=== PATIENT | male | born 1955 | race Caucasian/White ===

== ENCOUNTER → 2018-10-26 | Outpatient (CLI) | payer BC ==
[~2018-10-26] MED LIST: ALBU90OI INH; ALPR.25; ASPI81CH PO; ATEN25; ATEN50 PO; CIPR500 PO; CYAN100 PO; CYCL10 PO; DIAZ10 PO; FLONASE ALLERG9.9 ML NS; FLUO.05TO TOP; HYDACE10B PO; HYDR-86 PO; IBUP800; IBUP800 PO; LORA1 PO; METO50ER PO; PRED20; PSYL5.85P PO; QUET25 PO; RALT400 PO; SERT25 PO; TRAZ100 PO; TRUVADA 167 MG1 EACH PO
== END | disposition home or self-care (01) ==
LOC: PLD 10:42 → LAB SHORT 10:42
DX: L82.1 Other seborrheic keratosis (principal)
CPT/HCPCS: 88305

== ENCOUNTER 2019-06-04 13:05 | Inpatient (IN) | payer BC ==
[~2019-06-04] VITALS: Ht 182.9 cm; Wt 68.4 kg
[2019-06-04 13:34] LABS: BASOPHILS ABSOLUTE AUTO 0.04 K/mm3 (0.00-0.23); BASOPHILS PERCENT AUTO 1 % (0-2); EOSINOPHILS ABSOLUTE AUTO 0.19 K/mm3 (0.00-0.68); EOSINOPHILS PERCENT AUTO 2 % (0-6); Hematocrit 39.8 % (37.0-53.0); Hemoglobin 13.2 g/dL (13.5-17.5); IMMATURE GRAN ABSOLUTE AUTO 0.03 K/mm3 (0.00-0.10); IMMATURE GRAN PERCENT AUTO 0 % (0-1); LYMPHOCYTES ABSOLUTE AUTO 1.79 K/mm3 (0.84-5.20); LYMPHOCYTES PERCENT AUTO 21 % (21-46); MONOCYTES ABSOLUTE AUTO 0.67 K/mm3 (0.16-1.47); MONOCYTES PERCENT AUTO 8 % (4-13); Mean Corpuscular HGB 32.9 pg (26.0-34.0); Mean Corpuscular HGB Conc 33.2 g/dL (31.5-36.5); Mean Corpuscular Volume 99 fL (80-100); Mean Platelet Volume 9.3 fL (9.1-12.4); NEUTROPHILS PERCENT AUTO 68 % (41-73); Platelet Count 250 K/mm3 (150-400); RDW Coefficient Variation 12.6 % (11.7-14.2); RDW Standard Deviation 46.4 fL (35.1-46.3); Red Blood Cell Count 4.01 M/mm3 (4.30-5.90); White Blood Cell Count 8.52 K/mm3 (4.00-11.30)
[2019-06-04 13:54] LABS: Alanine Aminotransfer (ALT/SGP 35 U/L (12-78); Albumin, Blood 3.8 g/dL (3.4-5.0); Albumin/Globulin Ratio 1.2 (0.8-1.8); Alk Phos 71 U/L (50-136); Anion Gap 4 mmol/L (6-16); Aspartate Aminotrans (AST/SGOT 28 U/L (12-37); Bilirubin, Total 0.2 mg/dL (0.1-1.0); Blood Urea Nitrogen 17 mg/dL (8-24); Bun/Creatinine Ratio 16.5 (12.0-20.0); CO2, Blood 29 mmol/L (21-32); Calcium, Blood 8.9 mg/dL (8.5-10.1); Chloride, Blood 112 mmol/L (98-108); Creatinine, Blood 1.03 mg/dL (0.60-1.20); Globulin, Blood 3.2 g/dL (2.2-4.0); Glomerular Filtration Rate >60 (60-); Glucose, Blood 106 mg/dL (70-99); Potassium, Blood 4.2 mmol/L (3.5-5.5); Sodium, Blood 145 mmol/L (136-145); Troponin I 0.056 ng/mL (0.000-0.040)
[2019-06-04 15:43] LABS: International Normalized Ratio 0.9; Prothrombin Time Results 9.6 Sec (9.7-11.5)
--- NOTE | 2019-06-04 17:59 | NUR ---
ARIVAL TO THE UNIT: PT ARIVES TO ICU 2 VIA ICU BED. PT APPEARS TO BE A/O X 4. PULSES ARE NOTED AND STRONG IN R WRIST AND ALL OTHER EXTREMITIES. REPORT OF PT WITH TR BAND /C 12ML OF AIR PLACED AT 1700. NO ACUTE DISTRESS NOTED AT TIME OF ARIVAL. PT REPORT OF [place]. WILL CONTINUE TO MONITOR AND ASSESS FURTHER.
[2019-06-04] MEDS ORDERED: BIKTARVY 50-201 EACH PO (19:07)
--- NOTE | 2019-06-04 19:50 | NUR ---
SHIFT SUMMARY: PT C/O HEAD ACHE. REMOVED NITRO PASTE FROM CHEST AND EDUCATED PT ON REPORTING IF CHEST PAIN RETURNS, WILL CONTINUE TO MONITOR AND ASSESS. TR BAND IN PLACE NO OOZING NOTED, PT EDUCATED ON NOT USING R ARM. CALL LIGHT IN REACH. ADMISSION HISTORY COMPLETE. REPORT GIVEN TO NEHEMIAH RN.
--- NOTE | 2019-06-04 20:26 | NUR ---
CARE ASSUMED CARE AND REPORT ASSUMED FROM JAY NG. PT SITTING UP IN BED TALKING ON PHONE. DENIES CHEST PAIN AT THIS TIME BUT DOES COMPLAIN OF HEADACHE. MD MACIAS BEDSIDE EVALUATING PT AT THIS TIME AND IS AWARE OF HEADACHE. VSS. BBB, HR 50-60S. BP STABLE. LUNG SOUNDS CLEAR; SPO2 97% ON RA. AGGRASTAT INFUSING AT 12 ML/HR PER ORDERS. CURRENTLY IN PROCESS OF DEFLATING AND REMOVING TR BAND. PT EDUCATED ON CARE OF WRIST AND LIMITED USE. ARM REMAINS IN ARMBOARD. WILL CONTINUE TO MONITOR.
--- NOTE | 2019-06-04 23:42 | NUR ---
REASSESSMENT TR BAND REMOVED AT 2130, SITE CLEANED, CLOTH DOT DRESSING APPLIED, AND ARMBOARD REAPPLIED. SITE REMAINS CLEAN AND DRY. SURROUNDING ECCHYMOSIS DEVELOPING WITH MILD EDEMA. PT AWARE OF CONTINUED NEED TO KEEP R WRIST STRAIGHT WITHOUT BENDING. STATES HEADACHE IMPROVED AFTER MORPHINE. VSS. DENIES CHEST PAIN. AGGRASTAT REMAINS INFUSING. UP TO SIDE OF BED WITH NO ASSIST. WILL CONTINUE TO MONITOR.
--- NOTE | 2019-06-05 03:34 | NUR ---
REASSESSMENT PT SLEEPING BUT AWAKENS EASILY. HAD A 4 BEAT RUN OF PACS AND THEN COMPLAINED OF NAUSEA. ZOFRAN 4 MG IVP GIVEN; WILL RECHECK FOR SYMPTOM RELIEF. DENIES CHEST PAIN. AGGRASTAT REMAINS INFUSING PER ORDER. BP STABLE. SURGICAL SITE ON R WRIST REMAINS CLEAN AND DRY WITH ARMBOARD SECURED. WILL CONTINUE TO MONITOR.
[2019-06-05 05:39] LABS: BASOPHILS ABSOLUTE AUTO 0.03 K/mm3 (0.00-0.23); BASOPHILS PERCENT AUTO 1 % (0-2); EOSINOPHILS ABSOLUTE AUTO 0.18 K/mm3 (0.00-0.68); EOSINOPHILS PERCENT AUTO 3 % (0-6); Hematocrit 35.2 % (37.0-53.0); Hemoglobin 11.7 g/dL (13.5-17.5); IMMATURE GRAN ABSOLUTE AUTO 0.01 K/mm3 (0.00-0.10); IMMATURE GRAN PERCENT AUTO 0 % (0-1); LYMPHOCYTES ABSOLUTE AUTO 1.37 K/mm3 (0.84-5.20); LYMPHOCYTES PERCENT AUTO 22 % (21-46); MONOCYTES ABSOLUTE AUTO 0.53 K/mm3 (0.16-1.47); MONOCYTES PERCENT AUTO 8 % (4-13); Mean Corpuscular HGB 33.6 pg (26.0-34.0); Mean Corpuscular HGB Conc 33.2 g/dL (31.5-36.5); Mean Corpuscular Volume 101 fL (80-100); Mean Platelet Volume 9.3 fL (9.1-12.4); NEUTROPHILS ABSOLUTE AUTO 4.22 K/mm3 (1.96-9.15); NEUTROPHILS PERCENT AUTO 67 % (41-73); Platelet Count 213 K/mm3 (150-400); RDW Coefficient Variation 12.7 % (11.7-14.2); RDW Standard Deviation 46.9 fL (35.1-46.3); Red Blood Cell Count 3.48 M/mm3 (4.30-5.90); White Blood Cell Count 6.34 K/mm3 (4.00-11.30)
--- NOTE | 2019-06-05 05:39 | NUR ---
SHIFT SUMMARY PT SLEPT OFF/ON DURING NIGHT. VSS WITH HR 45-70 AND BBB. BP STABLE. RECEIVED ZOFRAN X1 DURING SHIFT FOR NAUSEA. UP TO SIDE OF BED INDEPENDENTLY. TR BAND REMOVED AT 0; SITE HAS BEEN CLEAN AND DRY SINCE. SMALL HEMATOMA DEVELOPING AROUND PUNCTURE SITE. ARM REMAINS SECURED IN ARMBOARD. AGGRASTAT INFUSING AT 12 ML/HR PER ORDERS. WILL GIVE BEDSIDE, HANDOFF REPORT TO DAY RN.
[2019-06-05 06:01] LABS: Anion Gap 5 mmol/L (6-16); Blood Urea Nitrogen 13 mg/dL (8-24); Bun/Creatinine Ratio 13.3 (12.0-20.0); CO2, Blood 28 mmol/L (21-32); Calcium, Blood 8.1 mg/dL (8.5-10.1); Chloride, Blood 110 mmol/L (98-108); Creatinine, Blood 0.97 mg/dL (0.60-1.20); Glomerular Filtration Rate >60 (60-); Glucose, Blood 95 mg/dL (70-99); Potassium, Blood 3.7 mmol/L (3.5-5.5); Sodium, Blood 143 mmol/L (136-145)
--- NOTE | 2019-06-05 07:16 | NUR ---
ASSUMED CARE: PT RESTING QUIETLY IN BED, ROUSES EASILY. STATES THAT HE HAS MINIMAL CHEST PAIN THAT COMES AND GOES AND SOME NAUSEA AT TIMES. RIGHT WRIST WITH SOME SWELLING AND BRUISING NOTED BUT NO NEW BLEEDING TO DRESSING SITE. DENIES FURTHER NEEDS OR CONCERNS AT THIS TIME.
--- NOTE | 2019-06-05 09:01 | NUR ---
DR GREENFIELD AND DR MACIAS CAME TO SEE PT THIS AM. AWARE OF PT'S RUN OF PACS OVERNIGHT AND OCCASIONAL CHEST PAIN. PLAN IS TO KEEP PT ONE MORE DAY FOR FURTHER MONITORING AND ECHO TO BE DONE. PT MAKING FAMILY AWARE. NO FURTHER NEEDS OR CONCERNS AT THIS TIME
--- NOTE | 2019-06-05 11:30 | NUR ---
REPORT GIVEN TO RN IN PCU. PT NOTIFIED FAMILY TO MAKE THEM AWARE OF TRANSFER. PT TRANSFERRED VIA WHEEL CHAIR TO PCU 8. NO FURTHER NEEDS OR CONCERNS
--- NOTE | 2019-06-05 11:47 | NUR ---
ARRIVAL PT ARRIVED TO UNIT APPROX. 1140 FROM ICU VIA WHEELCHAIR. ORIENTED PT TO ROOM, UNIT AND POLICIES. PT VITAL SIGNS STABLE. PT ABLE TO AMBULATE IN ROOM AND TOLERATED WELL. NOTED THAT ASSESSMENT FINDINGS REMAIN UNCHANGED FROM MORNING ASSESSMENT. RIGHT ARIST REMAIN UNCHANGED. BRUISING NOTED PREVIOUSLY NOTED AND SEEN BY PHYCICIAN. PHYSICIAN REPORTS UNCONCERNED ABOUT THESE FINDINGS. ARM BOARD REMAINS IN PLACE. DRESSING OVER INCERSION SITE. PT IN BED AT THIS TIME. BED IN LOW POSITION, CALL LIGHT IN REACH AND PT DENIES ANY NEEDS.
--- NOTE | 2019-06-05 12:03 | NUR ---
ECHOCARDIOGRAM COMPLETED
--- NOTE | 2019-06-05 18:37 | NUR ---
SHIFT SUMMARY PT PLEASANT, COOPERATIVE AND USES CALL LIGHT APPROPRIATELY. PT REMAINS A&OX4. VITAL SIGNS REMAIN STABLE. ASSESSMENT FINDINGS REMAIN UNCHAGED. RIGHT RADIAL SITE REMAINS UNCHAGED SINCE START OF SHIFT WITH SLIGHT BRUISING AND SWELLING NOTED. ARMBOARD REMAINS IN PLACE. PT ABLE TO AMBULATE AROUND ROOM AND TOELRATED WELL. FAMILY AT BEDSDIE INTERMITTENTLY. PT HAD INCREASED PAIN IN HEAD INTERMITETENLY AND PRN PAIN MEDICAITION GIVEN PER EMAR. PT AHD SOME NAUSEA BUT DENIES ANY CHEST PAIN OR PRESSURE WITH THIS. PRN NAUSEA MEDICATION GIVEN PER EMAR. BED IN LOW POSITION. CALL LIGHT IN REACH AND PT DENIES ANY NEEDS AT THIS TIME. WILL CONTINUE TO MONITOR UNTIL HANDOFF TO NIGHTSHIFT RN.
--- NOTE | 2019-06-06 05:26 | NUR ---
SHIFT SUMMARY PT SLEEPING IN ROOM COMFORTABLY AT THIS TIME. NO ACUTE CHANGES IN STATUS T.O NIGHT. PT SLEPTWELL T/O NIGHT AND WOKE TO VERBAL, PT WAKES VERY STARTLED AND SETTLES EASILY. PT REPORTS HAS "MAJOR PTSD" WHEN HE IS WOKEN UP. DENIES CP OR SOB RESP EVEN UNLBAORED ON RA W/ SATS >92%. ANGIO SITE TO R RADIAL, WNL, SOME BRUISING NOTED TO AREA, BUT HAS NOT CHANGED AND NO HEMATOMAS NOTED. PROVIDER AWARE OF BRUISING. CLEAR WINDOW IN PLACE OVER SITE AND ARMBOARD IN PLACE. CALL LIGHT IN REACH. PT INDEPENDENT IN ROOM.
--- NOTE | 2019-06-06 07:49 | NUR ---
Assumed care after bedside report from stef Vaca. The pt is alert, awake, and conversant. Only complaint is of nausea, for which he was given zofran. STates that he also feels constipated, which he states is very unusual for him. STates that his diet is normally excellent, as well as his activity level which is normally very active, but of course has not been since his admission here at the hospital. Right arm arterial access site is bruised, not swollen, and soft to touch. Pulses are palpable, and fingers are pink, warm, and dry, with brisk capilary refill. He is wearing the white immobilizer board on the right arm.
[2019-06-06] MEDS ORDERED: DOCU100 PO (10:15)
[2019-06-06] MEDS ORDERED: Pravachol40 MG PO (10:16)
[2019-06-06] MEDS ORDERED: METO50ER PO (10:16)
[2019-06-06] MEDS ORDERED: BRILINTA90 MG PO (10:18)
== END 2019-06-06 12:00 | disposition home or self-care (01) | DRG 247 ==
LOC: ER 13:05 → ICUW 14:53 → ICUE 14:53 → PCU 06-05 11:35
PROVIDERS: Internal Medicine Interventional Cardiology; Pharmacist; Physician Assistant; ADMIT Hospitalist
PROC: 4A023N7 Measurement of Cardiac Sampling and Pressure, Left Heart, Percutaneous Approach (ICD-10-PCS; principal; 2019-06-04)
PROC: 027135Z Dilation of Coronary Artery, Two Arteries with Two Drug-eluting Intraluminal Devices, Percutaneous Approach (ICD-10-PCS; 2019-06-04)
PROC: B211YZZ Fluoroscopy of Multiple Coronary Arteries using Other Contrast (ICD-10-PCS; 2019-06-04)
DX: I21.09 ST elevation (STEMI) myocardial infarction involving other coronary artery of anterior wall (principal); I10 Essential (primary) hypertension; I25.10 Atherosclerotic heart disease of native coronary artery without angina pectoris; Z21 Asymptomatic human immunodeficiency virus [HIV] infection status; F17.210 Nicotine dependence, cigarettes, uncomplicated; Z79.899 Other long term (current) drug therapy; F12.90 Cannabis use, unspecified, uncomplicated; D64.9 Anemia, unspecified; H91.90 Unspecified hearing loss, unspecified ear
CPT/HCPCS: 36415; 71046; 80048; 80053; 83690; 84484; 85025; 85610; 85730; 93005; 93010; 93306; 93454; 96374; 96375; 96376; 99152; 99153; 99285-25; C1725; C1769; C1874; C1887; C1894; C9600; C9601; C9606; J1644; J2250; J2270; J2405; J3010; J3246; J7030; Q9967

== ENCOUNTER 2019-08-13 15:23 | Emergency (ER) | payer BC ==
[~2019-08-13] VITALS: Ht 180.3 cm; Wt 74.8 kg
[~2019-08-13 15:23] MED LIST changes: +BIKTARVY 50-201 EACH PO; +BRILINTA90 MG PO; +DOCU100 PO; +Pravachol40 MG PO
[2019-08-13 16:10] LABS: BASOPHILS ABSOLUTE AUTO 0.03 K/mm3 (0.00-0.23); BASOPHILS PERCENT AUTO 0 % (0-2); EOSINOPHILS ABSOLUTE AUTO 0.16 K/mm3 (0.00-0.68); EOSINOPHILS PERCENT AUTO 2 % (0-6); Hematocrit 39.9 % (37.0-53.0); Hemoglobin 13.2 g/dL (13.5-17.5); IMMATURE GRAN ABSOLUTE AUTO 0.04 K/mm3 (0.00-0.10); IMMATURE GRAN PERCENT AUTO 1 % (0-1); LYMPHOCYTES ABSOLUTE AUTO 1.38 K/mm3 (0.84-5.20); LYMPHOCYTES PERCENT AUTO 19 % (21-46); MONOCYTES ABSOLUTE AUTO 0.64 K/mm3 (0.16-1.47); MONOCYTES PERCENT AUTO 9 % (4-13); Mean Corpuscular HGB 32.6 pg (26.0-34.0); Mean Corpuscular HGB Conc 33.1 g/dL (31.5-36.5); Mean Corpuscular Volume 99 fL (80-100); Mean Platelet Volume 8.9 fL (9.1-12.4); NEUTROPHILS ABSOLUTE AUTO 5.04 K/mm3 (1.96-9.15); NEUTROPHILS PERCENT AUTO 69 % (41-73); Platelet Count 269 K/mm3 (150-400); RDW Coefficient Variation 11.6 % (11.7-14.2); RDW Standard Deviation 42.3 fL (35.1-46.3); Red Blood Cell Count 4.05 M/mm3 (4.30-5.90); White Blood Cell Count 7.29 K/mm3 (4.00-11.30)
[2019-08-13 16:25] LABS: International Normalized Ratio 0.92; Prothrombin Time Results 9.8 Sec (9.7-11.5)
[2019-08-13 16:35] LABS: Alanine Aminotransfer (ALT/SGP 41 U/L (12-78); Albumin/Globulin Ratio 1.2 (0.8-1.8); Alk Phos 80 U/L (50-136); Anion Gap 3 mmol/L (6-16); Aspartate Aminotrans (AST/SGOT 30 U/L (12-37); Bilirubin, Total 0.4 mg/dL (0.1-1.0); Blood Urea Nitrogen 20 mg/dL (8-24); Bun/Creatinine Ratio 17.5 (12.0-20.0); CO2, Blood 29 mmol/L (21-32); Calcium, Blood 9.1 mg/dL (8.5-10.1); Chloride, Blood 106 mmol/L (98-108); Creatinine, Blood 1.14 mg/dL (0.60-1.20); Globulin, Blood 3.3 g/dL (2.2-4.0); Glomerular Filtration Rate >60 (60-); Glucose, Blood 90 mg/dL (70-99); Potassium, Blood 3.7 mmol/L (3.5-5.5); Sodium, Blood 138 mmol/L (136-145); Total Protein, Blood 7.3 g/dL (6.4-8.2)
[2019-08-13] MEDS ORDERED: Norco 5-325 Ta1 EACH PO ×2 (18:05→18:06)
== END 2019-08-13 18:30 | disposition home or self-care (01) ==
LOC: ER 15:23
PROVIDERS: Physician Assistant
DX: S22.31XA Fracture of one rib, right side, initial encounter for closed fracture (principal); S42.031A Displaced fracture of lateral end of right clavicle, initial encounter for closed fracture; S27.321A Contusion of lung, unilateral, initial encounter; S01.112A Laceration without foreign body of left eyelid and periocular area, initial encounter; S40.021A Contusion of right upper arm, initial encounter; Z91.013 Allergy to seafood; Z88.2 Allergy status to sulfonamides; Z88.8 Allergy status to other drugs, medicaments and biological substances; Z88.0 Allergy status to penicillin; Z91.018 Allergy to other foods; Z79.899 Other long term (current) drug therapy; Z79.82 Long term (current) use of aspirin; F17.200 Nicotine dependence, unspecified, uncomplicated; W10.9XXA Fall (on) (from) unspecified stairs and steps, initial encounter
CPT/HCPCS: 70450; 71260; 72125; 73060; 73110; 74177; 80053; 85025; 85610; 90471; 90714; 96374-59; 96376-59; 99284-25; A9270; J3010; L0160; Q9967

== ENCOUNTER 2019-12-29 21:08 | Emergency (ER) | payer BC ==
[~2019-12-29] VITALS: Ht 182.9 cm; Wt 76.2 kg
[~2019-12-29 21:08] MED LIST changes: +Norco 5-325 Ta1 EACH PO
[2019-12-29 21:44] LABS: BASOPHILS ABSOLUTE AUTO 0.04 K/mm3 (0.00-0.23); BASOPHILS PERCENT AUTO 0 % (0-2); EOSINOPHILS ABSOLUTE AUTO 0.11 K/mm3 (0.00-0.68); EOSINOPHILS PERCENT AUTO 1 % (0-6); Hematocrit 38.6 % (37.0-53.0); Hemoglobin 13.1 g/dL (13.5-17.5); IMMATURE GRAN ABSOLUTE AUTO 0.08 K/mm3 (0.00-0.10); IMMATURE GRAN PERCENT AUTO 1 % (0-1); LYMPHOCYTES ABSOLUTE AUTO 0.72 K/mm3 (0.84-5.20); LYMPHOCYTES PERCENT AUTO 4 % (21-46); MONOCYTES ABSOLUTE AUTO 0.53 K/mm3 (0.16-1.47); MONOCYTES PERCENT AUTO 3 % (4-13); Mean Corpuscular HGB 32.3 pg (26.0-34.0); Mean Corpuscular HGB Conc 33.9 g/dL (31.5-36.5); Mean Corpuscular Volume 95 fL (80-100); Mean Platelet Volume 9.2 fL (9.1-12.4); NEUTROPHILS ABSOLUTE AUTO 15.59 K/mm3 (1.96-9.15); NEUTROPHILS PERCENT AUTO 91 % (41-73); Platelet Count 247 K/mm3 (150-400); RDW Coefficient Variation 12.4 % (11.7-14.2); RDW Standard Deviation 43.2 fL (35.1-46.3); Red Blood Cell Count 4.06 M/mm3 (4.30-5.90); White Blood Cell Count 17.07 K/mm3 (4.00-11.30)
[2019-12-29 22:15] LABS: Alanine Aminotransfer (ALT/SGP 33 U/L (12-78); Albumin, Blood 3.8 g/dL (3.4-5.0); Alk Phos 66 U/L (50-136); Anion Gap 9 mmol/L (6-16); Aspartate Aminotrans (AST/SGOT 22 U/L (12-37); Bilirubin, Total 0.5 mg/dL (0.1-1.0); Blood Urea Nitrogen 19 mg/dL (8-24); CO2, Blood 24 mmol/L (21-32); Calcium, Blood 8.9 mg/dL (8.5-10.1); Chloride, Blood 103 mmol/L (98-108); Glomerular Filtration Rate >60 (60-); Glucose, Blood 97 mg/dL (70-99); Potassium, Blood 3.4 mmol/L (3.5-5.5); Sodium, Blood 136 mmol/L (136-145); Total Protein, Blood 7.8 g/dL (6.4-8.2)
[2019-12-29 23:37] LABS: Magnesium, Blood 1.5 mg/dL (1.6-2.4); Troponin I <0.015 ng/mL (0.000-0.040)
[2019-12-30 00:26] LABS: Influenza A Negative (NEGATIVE); Influenza B Negative (NEGATIVE)
[2019-12-30 00:45] LABS: Source, Urine Clean Catch
[2019-12-30 00:49] LABS: Bilirubin, Urine Neg (Neg); Blood, Urine 5+ (Neg); Glucose Qualitative, Urine Neg (Neg); Ketones, Urine 2+ (Neg); Leukocyte Esterase, Urine 3+ (Neg); Nitrite, Urine Pos (Neg); Protein, Urine 1+ (Neg); Specific Gravity, Urine 1.005 (1.003-1.022); Urobilinogen, Urine NORM (Normal)
[2019-12-30 00:58] LABS: Appearance, Urine Hazy (Clear); Color, Urine Yellow (P-Yellow)
[2019-12-30 00:59] LABS: Bacteria Many /hpf; Squamous Epithelial Cells Rare /hpf (Few); White Blood Cells, Urine 25-50 /hpf (0-5)
[2019-12-30] MEDS ORDERED: CEFD300 PO (01:07)
[2019-12-30] MEDS ORDERED: Pyridium200 MG PO (01:07)
[2019-12-30] MEDS ORDERED: Flomax0.4 MG PO (01:07)
== END 2019-12-30 02:20 | disposition home or self-care (01) ==
LOC: ER 21:08
PROVIDERS: Emergency Medicine
DX: N39.0 Urinary tract infection, site not specified (principal); B20 Human immunodeficiency virus [HIV] disease; I10 Essential (primary) hypertension; I25.2 Old myocardial infarction; F17.200 Nicotine dependence, unspecified, uncomplicated; Z88.2 Allergy status to sulfonamides; Z88.0 Allergy status to penicillin; Z79.899 Other long term (current) drug therapy
CPT/HCPCS: 36415; 51798; 71046; 80053; 81001; 83605; 83735; 84145; 84484; 85025; 87077; 87086; 87186; 87804; 93005; 93010; 96361; 96365-59; 96375-59; 99284-25; J0696; J2405; J7030

== ENCOUNTER 2020-06-19 08:13 | Day surgery (SDC) | payer BC ==
[~2020-06-19 08:13] MED LIST changes: +CEFD300 PO; +Flomax0.4 MG PO; +Pyridium200 MG PO
== END 2020-06-19 23:39 | disposition home or self-care (01) ==
LOC: RAD 08:13 → MRI 10:00 → RAD 23:39
DX: S63.501D Unspecified sprain of right wrist, subsequent encounter (principal)
CPT/HCPCS: 20605; 73222; 77002; A9577; Q9967

== ENCOUNTER 2020-08-01 06:12 | Day surgery (SDC) | payer BC ==
[~2020-08-01] VITALS: Ht 180.3 cm; Wt 77.3 kg
[~2020-08-01 06:12] MED LIST changes: +ALORA1 EAC1 TOP; +ASPIR 8181 M1 PO; +Ativan1 MG PO; +B-12 COMPL1000 MCG/2 IM; +BIKTARVY 50-201 EAC1 PO; +COENZYME Q-1030 MG PO; +DHEA PO; +FENUGREEK500 MG PO; +FLAXSEED1000 MG PO; +FLUT.05NI; +LISI10 PO; +MEDR2.5 PO; +Norco 7.5-3251 EACH PO; +OMEGA-3 FISH O1 EAC6 PO; +PANAX GINSENG; +Pravastatin Sod80 MG PO; +SEROQUEL25 MG PO; +SERT50 PO
--- NOTE | 2020-08-01 08:37 | NUR ---
08/01/20 0837 MARKUS SMITH patient to recliner. he denies pain or nausea/vomiting. medicated with oral pain medication after toelrating po intake. iv dc'd. ENGAGED IN DC TEACHING ONVE FRIEND ARRIVED. ALL QUESTIONS ASKED AND ANSWERED. SLING PROVIDED TO PATIENT
== END 2020-08-01 08:35 | disposition home or self-care (01) ==
LOC: ORSCSDS 06:12
PROVIDERS: Orthopaedic Surgery
PROC: 01N50ZZ Release Median Nerve, Open Approach (ICD-10-PCS; principal; 2020-08-01 07:30)
DX: G56.01 Carpal tunnel syndrome, right upper limb (principal); I10 Essential (primary) hypertension; I25.2 Old myocardial infarction; Z79.82 Long term (current) use of aspirin; Z79.899 Other long term (current) drug therapy
CPT/HCPCS: J0690; J2250; J2704; J3010; J7120

== ENCOUNTER 2020-10-10 06:11 | Day surgery (SDC) | payer BC ==
[~2020-10-10] VITALS: Ht 180.3 cm; Wt 79.5 kg
--- NOTE | 2020-10-10 08:28 | NUR ---
10/10/20 0828 Adeola Schwartz PT. VERY HARD OF HEARING. DISCHARGE INSTRUCTIONS GIVEN VERBALLY WHILE SHOWING WRITTEN INSTRUCTIONS. DISCHARGE INSTRUCTIONS REPEATED TO MARYA AT THE CAR. NO VISITORS ARE ALLOWED AT THIS TIME TO STATE COVID REGULATIONS. AMBULATORY WITHOUT DIFFICULTY. SLING IN PLACE WITH ICE PACK. DENIES PAIN OR DISCOMFORT.
== END 2020-10-10 08:20 | disposition home or self-care (01) ==
LOC: ORSCSDS 06:11
PROVIDERS: Orthopaedic Surgery
PROC: 01N50ZZ Release Median Nerve, Open Approach (ICD-10-PCS; principal; 2020-10-10 07:30)
DX: G56.02 Carpal tunnel syndrome, left upper limb (principal); B20 Human immunodeficiency virus [HIV] disease; I10 Essential (primary) hypertension; I21.9 Acute myocardial infarction, unspecified; I25.2 Old myocardial infarction; J45.909 Unspecified asthma, uncomplicated; F41.9 Anxiety disorder, unspecified; Z79.82 Long term (current) use of aspirin; Z79.899 Other long term (current) drug therapy
CPT/HCPCS: J0690; J2250; J3010; J7120

== ENCOUNTER 2021-01-27 09:29 | Day surgery (SDC) | payer BC ==
[~2021-01-27] VITALS: Ht 180.3 cm; Wt 73.4 kg
== END 2021-01-27 13:25 | disposition home or self-care (01) ==
LOC: ORSCSDS 09:29
PROVIDERS: Internal Medicine Gastroenterology
PROC: 0DJD8ZZ Inspection of Lower Intestinal Tract, Via Natural or Artificial Opening Endoscopic (ICD-10-PCS; principal; 2021-01-27 11:00)
DX: Z12.11 Encounter for screening for malignant neoplasm of colon (principal); Z86.010 Personal history of colon polyps; K57.30 Diverticulosis of large intestine without perforation or abscess without bleeding; B20 Human immunodeficiency virus [HIV] disease; I10 Essential (primary) hypertension; K21.9 Gastro-esophageal reflux disease without esophagitis; I25.10 Atherosclerotic heart disease of native coronary artery without angina pectoris; Z79.899 Other long term (current) drug therapy; Z79.82 Long term (current) use of aspirin
CPT/HCPCS: J2704; J7120

== ENCOUNTER → 2023-02-02 | Outpatient (CLI) | payer MEDICARE, BC | END | disposition home or self-care (01) | LOC: LAB SHORT 18:42 → LAB 18:42 | DX: N39.0 Urinary tract infection, site not specified (principal) | CPT/HCPCS: 87086 ==

== ENCOUNTER → 2023-03-11 | Outpatient (CLI) | payer MEDICARE, BC | END | disposition home or self-care (01) | LOC: LAB SHORT 12:13 → PLD 12:13 | DX: C44.712 Basal cell carcinoma of skin of right lower limb, including hip (principal) | CPT/HCPCS: 88305 ==

== ENCOUNTER → 2023-04-30 | Outpatient (CLI) | payer MEDICARE, BC | END | disposition home or self-care (01) | LOC: LAB SHORT 11:36 → LAB 11:36 | DX: N20.0 Calculus of kidney (principal) | CPT/HCPCS: 81050 ==

== ENCOUNTER → 2023-09-21 | Outpatient (CLI) | payer MEDICARE, BC | END | disposition home or self-care (01) | LOC: LAB SHORT 14:31 → LAB 14:31 | DX: C44.519 Basal cell carcinoma of skin of other part of trunk (principal) | CPT/HCPCS: 88305 ==

== ENCOUNTER 2024-06-13 11:07 | Emergency (ER) | payer MEDICARE, BC ==
[~2024-06-13] VITALS: Ht 180.3 cm; Wt 77.1 kg
[2024-06-13] MEDS ORDERED: TAMSULOSIN HCL0.4 M1 PO (11:30)
[2024-06-13 11:38] LABS: BASOPHILS ABSOLUTE AUTO 0.04 K/mm3 (0.00-0.23); BASOPHILS PERCENT AUTO 1 % (0-2); EOSINOPHILS ABSOLUTE AUTO 0.18 K/mm3 (0.00-0.68); EOSINOPHILS PERCENT AUTO 2 % (0-6); IMMATURE GRAN ABSOLUTE AUTO 0.03 K/mm3 (0.00-0.10); IMMATURE GRAN PERCENT AUTO 0 % (0-1); LYMPHOCYTES ABSOLUTE AUTO 1.31 K/mm3 (0.84-5.20); LYMPHOCYTES PERCENT AUTO 16 % (21-46); MONOCYTES ABSOLUTE AUTO 0.57 K/mm3 (0.16-1.47); MONOCYTES PERCENT AUTO 7 % (4-13); Mean Corpuscular HGB 33.4 pg (26.0-34.0); Mean Corpuscular HGB Conc 34.1 g/dL (31.5-36.5); Mean Corpuscular Volume 98 fL (80-100); NEUTROPHILS ABSOLUTE AUTO 5.98 K/mm3 (1.96-9.15); NEUTROPHILS PERCENT AUTO 74 % (41-73); Platelet Count 296 K/mm3 (150-400); RDW Coefficient Variation 12.2 % (11.7-14.2); RDW Standard Deviation 44.4 fL (35.1-46.3); Red Blood Cell Count 4.19 M/mm3 (4.30-5.90); White Blood Cell Count 8.11 K/mm3 (4.00-11.30)
[2024-06-13] MEDS ORDERED: Ketorolac Tromethamine 30mg Vial IV ONE (11:50)
[2024-06-13] MEDS ORDERED: Ondansetron HCl 2 MG / ML 2ML Vial IV ONE (11:55)
[2024-06-13] MEDS ORDERED: NS 1,000 ML IV SCH (11:55)
[2024-06-13 11:58] LABS: Albumin, Blood 4.1 g/dL (3.4-5.0); Albumin/Globulin Ratio 1.1 (0.8-1.8); Bilirubin, Total 0.4 mg/dL (0.1-1.0); Bun/Creatinine Ratio 17.9 (12.0-20.0); Calcium, Blood 9.1 mg/dL (8.5-10.1); Creatinine, Blood 1.12 mg/dL (0.60-1.20); Globulin, Blood 3.8 g/dL (2.2-4.0); Potassium, Blood 3.9 mmol/L (3.5-5.5); Total Protein, Blood 7.9 g/dL (6.4-8.2)
[2024-06-13 12:44] LABS: Source, Urine Clean Catch
[2024-06-13 13:04] LABS: Appearance, Urine Hazy (Clear); Bilirubin, Urine Neg (Neg); Blood, Urine Neg (Neg); Color, Urine Yellow (P-Yellow); Glucose Qualitative, Urine Neg (Neg); Ketones, Urine Neg (Neg); Leukocyte Esterase, Urine Neg (Neg); Nitrite, Urine Neg (Neg); Protein, Urine Neg (Neg); Specific Gravity, Urine 1.015 (1.003-1.022); Urobilinogen, Urine NORM (Normal)
[2024-06-13 13:20] LABS: Amorphous Heavy (0-Heavy); Bacteria Not Seen /hpf; Red Blood Cells, Urine Not Seen /hpf (0-2); Squamous Epithelial Cells Not Seen /hpf (Few); White Blood Cells, Urine Not Seen /hpf (0-5)
[2024-06-13] MEDS ORDERED: FentaNYL Citrate 50 MCG/ML 2 ML Injection IV ONE (13:55)
[2024-06-13] MEDS ORDERED: TAMS.4ER PO (14:36)
[2024-06-13] MEDS ORDERED: Percocet 5-3251 EACH PO (14:36)
[2024-06-13] MEDS ORDERED: DOCU100 PO (14:43)
[2024-06-13] MEDS ORDERED: OxyCODONE 7.5 mg/Acetam 325 mg TABLET PO ONE (14:45)
[2024-06-13 15:02] VITALS: BP 173/91
== END 2024-06-13 14:56 | disposition home or self-care (01) ==
LOC: ER 11:07
PROVIDERS: Emergency Medicine; Physician Assistant
DX: N20.2 Calculus of kidney with calculus of ureter (principal); I10 Essential (primary) hypertension; Z87.891 Personal history of nicotine dependence; I25.2 Old myocardial infarction; Z79.51 Long term (current) use of inhaled steroids; Z79.899 Other long term (current) drug therapy; Z79.82 Long term (current) use of aspirin; Z91.018 Allergy to other foods; Z88.2 Allergy status to sulfonamides; Z91.013 Allergy to seafood; Z88.8 Allergy status to other drugs, medicaments and biological substances
CPT/HCPCS: 74177; 80053; 81001; 83690; 84484; 85025; 93005; 93010; 96361; 96374-59; 96375; 99284-25; A9270; J1885; J2405; J3010; J7030; Q9967

== ENCOUNTER 2024-11-06 17:04 | Emergency (ER) | payer MEDICARE, BC ==
[~2024-11-06] VITALS: Ht 185.4 cm; Wt 83.9 kg
[~2024-11-06 17:04] MED LIST changes: +Percocet 5-3251 EACH PO; +TAMS.4ER PO; +TAMSULOSIN HCL0.4 M1 PO
[2024-11-06 18:25] VITALS: BP 153/92
== END 2024-11-06 20:30 | disposition home or self-care (01) ==
LOC: ER 17:04
DX: R60.0 Localized edema (principal); M17.11 Unilateral primary osteoarthritis, right knee; I10 Essential (primary) hypertension; I25.2 Old myocardial infarction; Z21 Asymptomatic human immunodeficiency virus [HIV] infection status; Z87.891 Personal history of nicotine dependence; Z91.018 Allergy to other foods; Z91.013 Allergy to seafood; Z88.2 Allergy status to sulfonamides; Z88.8 Allergy status to other drugs, medicaments and biological substances; Z79.82 Long term (current) use of aspirin; Z79.899 Other long term (current) drug therapy
CPT/HCPCS: 93971; 99284-25

== ENCOUNTER 2025-03-03 23:20 | Emergency (ER) | payer MEDICARE, BC ==
[~2025-03-03] VITALS: Ht 177.8 cm; Wt 72.6 kg
[2025-03-03] MEDS ORDERED: Lidocaine 2% Jelly Uro-Jet TOP ONE (23:40)
[2025-03-03 23:49] LABS: Source, Urine Foley catheter
[2025-03-03 23:59] LABS: Bilirubin, Urine Neg (Neg); Blood, Urine 5+ (Neg); Glucose Qualitative, Urine Neg (Neg); Ketones, Urine Neg (Neg); Leukocyte Esterase, Urine 3+ (Neg); Nitrite, Urine Pos (Neg); Protein, Urine 4+ (Neg); Urobilinogen, Urine NORM (Normal); pH, Urine 6.5 (5.0-8.0)
[2025-03-04 00:03] LABS: Appearance, Urine Cloudy (Clear); Color, Urine Red (P-Yellow)
[2025-03-04 00:11] LABS: BASOPHILS ABSOLUTE AUTO 0.06 K/mm3 (0.00-0.23); BASOPHILS PERCENT AUTO 1 % (0-2); EOSINOPHILS ABSOLUTE AUTO 0.36 K/mm3 (0.00-0.68); EOSINOPHILS PERCENT AUTO 5 % (0-6); Hematocrit 39.5 % (37.0-53.0); Hemoglobin 13.7 g/dL (13.5-17.5); IMMATURE GRAN ABSOLUTE AUTO 0.02 K/mm3 (0.00-0.10); IMMATURE GRAN PERCENT AUTO 0 % (0-1); LYMPHOCYTES ABSOLUTE AUTO 2.42 K/mm3 (0.84-5.20); LYMPHOCYTES PERCENT AUTO 34 % (21-46); MONOCYTES PERCENT AUTO 10 % (4-13); Mean Corpuscular HGB 33.9 pg (26.0-34.0); Mean Corpuscular HGB Conc 34.7 g/dL (31.5-36.5); Mean Corpuscular Volume 98 fL (80-100); Mean Platelet Volume 9.4 fL (9.1-12.4); NEUTROPHILS PERCENT AUTO 50 % (41-73); Platelet Count 279 K/mm3 (150-400); RDW Standard Deviation 43.8 fL (35.1-46.3); Red Blood Cell Count 4.04 M/mm3 (4.30-5.90); White Blood Cell Count 7.06 K/mm3 (4.00-11.30)
[2025-03-04 00:19] LABS: Bacteria Few /hpf; Red Blood Cells, Urine TNTC /hpf (0-2); Squamous Epithelial Cells Not Seen /hpf (Few); White Blood Cells, Urine 0-2 /hpf (0-5)
[2025-03-04 00:21] LABS: Bun/Creatinine Ratio 19.7 (12.0-20.0); Calcium, Blood 9.6 mg/dL (8.5-10.1); Creatinine, Blood 0.96 mg/dL (0.60-1.20); Potassium, Blood 3.5 mmol/L (3.5-5.5)
[2025-03-04] MEDS ORDERED: CefTRIAXone Sodium 1,000 MG in NS 100 ML IV ONE (01:10)
[2025-03-04] MEDS ORDERED: CEPH500 PO (03:15)
[2025-03-04 03:34] VITALS: BP 134/82
[2025-03-07] MEDS ORDERED: Macrodantin100 MG PO (10:13)
== END 2025-03-04 03:35 | disposition home or self-care (01) ==
LOC: ER 23:20
PROVIDERS: Emergency Medicine; Student in an Organized Health Care Education/Training Program
DX: N39.0 Urinary tract infection, site not specified (principal); I10 Essential (primary) hypertension; Z87.891 Personal history of nicotine dependence; Z79.82 Long term (current) use of aspirin; Z79.899 Other long term (current) drug therapy; Z91.018 Allergy to other foods; Z91.013 Allergy to seafood; Z88.2 Allergy status to sulfonamides; Z88.8 Allergy status to other drugs, medicaments and biological substances
CPT/HCPCS: 51702; 51798; 74177; 80048; 81001; 85025; 87077; 87086; 87186; 99284-25; J0696; Q9967

== ENCOUNTER 2025-03-04 14:40 | Emergency (ER) | payer MEDICARE, BC ==
[~2025-03-04] VITALS: Ht 180.3 cm; Wt 75.3 kg
[~2025-03-04 14:40] MED LIST changes: +CEPH500 PO
[2025-03-04 14:45] VITALS: BP 143/91
[2025-03-07] MEDS ORDERED: Macrodantin100 MG PO (10:13)
== END 2025-03-04 17:03 | disposition home or self-care (01) ==
LOC: ER 14:40
DX: T83.091A Other mechanical complication of indwelling urethral catheter, initial encounter (principal); I10 Essential (primary) hypertension; I25.2 Old myocardial infarction; Z21 Asymptomatic human immunodeficiency virus [HIV] infection status; Z87.891 Personal history of nicotine dependence; Z91.018 Allergy to other foods; Z91.013 Allergy to seafood; Z88.2 Allergy status to sulfonamides; Z88.8 Allergy status to other drugs, medicaments and biological substances; Z79.82 Long term (current) use of aspirin; Z79.899 Other long term (current) drug therapy
CPT/HCPCS: 51798; 99283

== ENCOUNTER → 2025-10-01 | Outpatient (CLI) | payer MEDICARE, BC ==
[~2025-10-01] MED LIST changes: +Macrodantin100 MG PO
[2025-10-06 12:07] LABS: CALCIUM, URINE - PER 24H 449 mg/d (100-250); CALCIUM, URINE - PER VOLUME 26.4 mg/dL; CHLORIDE, URINE - PER 24H 212 mmol/d (140-250); CHLORIDE, URINE - PER VOLUME 125 mmol/L; CITRIC ACID, URINE - PER 24H 233 mg/d (320-1240); CITRIC ACID,URINE - PER VOLUME 137 mg/L; CREATININE, URINE - PER 24H 1887 mg/d (800-2100); CREATININE, URINE - PER VOLUME 111 mg/dL; HOURS COLLECTED 24 hr; MAGNESIUM, URINE - PER VOLUME 9.3 mg/dL; MAGNESIUM, URINE PER 24H 158 mg/d (12-199); OXALATE, URINE - PER 24H 54 mg/d (16-49); OXALATE, URINE - PER VOLUME 32 mg/L; PHOSPHORUS, URINE - PER 24H 850 mg/d (400-1300); PHOSPHORUS, URINE - PER VOLUME 50 mg/dL; POTASSIUM, URINE - PER 24H 56 mmol/d (25-125); POTASSIUM, URINE - PER VOLUME 33 mmol/L; SODIUM, URINE - PER 24H 211 mmol/d (51-286); SODIUM, URINE - PER VOLUME 124 mmol/L; SULFATE, URINE - PER 24H 24 mmol/d (6-30); SULFATE, URINE - PER VOLUME 14 mmol/L; URIC ACID, URINE - PER 24H 586 mg/d (250-750); URIC ACID, URINE - PER VOLUME 34.5 mg/dL; URINE SUPERSATURATION INTERP Abnormal; URINE SUPERSATURATION, CAHPO4 2.93; URINE SUPERSATURATION, CAOX 17.19; URINE SUPERSATURATION, UA CALC 0.67
== END ==
LOC: LAB SHORT 09:00 → LAB 09:00
PROVIDERS: Urology
DX: N20.2 Calculus of kidney with calculus of ureter (principal)
CPT/HCPCS: 81003; 81050; 82131; 82140; 82340; 82436; 82507; 82570; 83735; 83935; 83945; 84105; 84133; 84300; 84392; 84560